=== PATIENT | female | born 1965 | race Two or more races ===

== ENCOUNTER → 2020-03-27 | Outpatient (CLI) | payer OTHER | END | disposition home or self-care (01) | LOC: OFIC 805 13:25 | PROVIDERS: ATTEND Otolaryngology Otology & Neurotology | DX: R04.0 Epistaxis (principal); S02.2XXA Fracture of nasal bones, initial encounter for closed fracture; S00.83XA Contusion of other part of head, initial encounter ==

== ENCOUNTER 2020-04-07 10:13 | Outpatient (CLI) | payer OTHER | END 2020-04-07 11:20 | disposition home or self-care (01) | LOC: OFIC 805 10:13 | PROVIDERS: ATTEND Otolaryngology Otology & Neurotology | DX: R04.0 Epistaxis (principal); S02.2XXA Fracture of nasal bones, initial encounter for closed fracture; S00.83XA Contusion of other part of head, initial encounter ==